=== PATIENT | male | born 1990 | race Caucasian/White ===

== ENCOUNTER 2020-05-09 18:25 | Emergency (ER) | payer OTHER, BC ==
[~2020-05-09] VITALS: Ht 167.6 cm; Wt 72.6 kg
[2020-05-09 18:45] VITALS: Ht 167.6 cm; Wt 72.6 kg
[2020-05-09 21:02] VITALS: BP 143/87
== END 2020-05-09 21:02 | disposition home or self-care (01) ==
LOC: ED 18:25
DX: S06.0X0A Concussion without loss of consciousness, initial encounter (principal); S16.1XXA Strain of muscle, fascia and tendon at neck level, initial encounter; V49.49XA Driver injured in collision with other motor vehicles in traffic accident, initial encounter; Y93.I9 Activity, other involving external motion; Y92.413 State road as the place of occurrence of the external cause; Y99.8 Other external cause status